=== PATIENT | male | born 1940 | race Caucasian/White ===

== ENCOUNTER 2017-02-09 11:21 | Day surgery (SDC) | payer OTHER ==
[~2017-02-09 11:21] MED LIST: AMBI5TAB PO; LEXA5SOL PO; LORC10TA PO; NORT10S PO
[2017-02-09] MEDS ORDERED: ASPI325T PO (12:04)
[2017-02-09] MEDS ORDERED: OMEG100010 PO (12:04)
[2017-02-09] MEDS ORDERED: NIZA150C2 PO (12:04)
[2017-02-09] MEDS ORDERED: ESCI20TA PO (12:04)
[2017-02-09] MEDS ORDERED: ROPI0.25 PO (12:04)
[2017-02-09] MEDS ORDERED: TEMA15CA PO (12:04)
[2017-02-09] MEDS ORDERED: PROP20TA3 PO (12:04)
[2017-02-09] MEDS ORDERED: REDCAP2 PO (12:04)
[2017-02-09] MEDS ORDERED: UBIQ100C PO (12:04)
[2017-02-09] MEDS ORDERED: CLON0.5T PO (12:04)
[2017-02-09] MEDS ORDERED: POVIDONE IODINE 5% (ANTISEPSIS KIT) 4 APPLICATIONS EACH NARE SCH (12:30)
[2017-02-09] MEDS ORDERED: MUPIROCIN 2% OINT 1 APPLIC/GM SYR NASAL SCH (12:30)
[2017-02-09] MEDS ORDERED: ceFAZolin 2 GM PREMIX 50 ML IV SCH (12:30)
[2017-02-09] MEDS ORDERED: CHLORHEXIDINE GLUCONATE 2 % 1 PACK (2 CLOTHS) TOPICAL SCH (12:30)
[2017-02-09] MEDS ORDERED: MIDAZOLAM HCL 5 MG/5 ML VIAL ONE (12:56)
--- NOTE | 2017-02-09 14:49 | MP ---
cc: QUETA DAVIS DATE OF SURGERY: 02/09/2017 INDICATION CVA, evaluation for atrial fibrillation. PROCEDURE PERFORMED Placement of Medtronic Reveal LINQ MRI compatible loop monitor. ACCESS SITE Left subclavicular area. EQUIPMENT USED Medtronic Reveal LINQ, model LMP11, MRI compatible loop monitor. Serial number [id number]. MEDICATIONS Versed IV, fentanyl IV. PROCEDURE Left upper chest was prepped and draped in the usual sterile manner. Local anesthesia was administered. Medtronic Reveal LINQ MRI compatible monitor was placed without difficulty. R-wave was 0.62 mV. COMPLICATIONS None. BLOOD LOSS Less than 10 ccs. DIAGNOSIS Successful placement of Medtronic Reveal LINQ MRI compatible loop monitor. DISPOSITION Mr. Carlson will be discharged home later today. We will initiate long-term monitoring of his device. I will see him back for followup in our office after discharge. MD DAVINA Orozco/TLL /1:57 PM /2:28 PM MTDTana
== END 2017-02-09 14:30 | disposition home or self-care (01) ==
LOC: HCAT 11:21 → HDIC 11:22 → HCAT 14:30
PROVIDERS: ATTEND Internal Medicine Interventional Cardiology
DX: I48.2 Chronic atrial fibrillation (principal)
CPT/HCPCS: 33282; C1764; J0690; J2250; J3010

== ENCOUNTER 2018-03-16 05:23 | Inpatient (IN) ==
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
[2018-03-16] MEDS ORDERED: ceFAZolin 2 GM Premix Inj 2 GM/50 ML PIGGYBACK IV.SIG ONE (05:53)
[2018-03-16] MEDS ORDERED: Sodium Chlor 0.9% Inj 500 ML IV.SIG SCH (06:00)
[2018-03-16] MEDS ORDERED: Chlorhexidine Gluconate 2% 1 Pack (2 Cloths) TOPICAL SCH (06:00)
[2018-03-16] MEDS ORDERED: Metoprolol Tartrate 25 MG Tablet PO SCH (06:00)
[2018-03-16] MEDS ORDERED: Tranexamic Acid Inj 1,000 MG in Sodium Chlor 0.9% Inj 100 ML IV.SIG SCH ×2 (06:00→08:57)
[2018-03-16] MEDS ORDERED: Dexmedetomidine Inj 200 MCG/2 ML Vial ONE (06:02)
[2018-03-16] MEDS ORDERED: Bupivacaine Liposomal PF 1.3% Inj 20 ML Vial ONE (06:40)
[2018-03-16] MEDS ORDERED: fentaNYL Citrate Inj 100 MCG/2 ML Ampul ONE (10:03)
[2018-03-16] MEDS ORDERED: Naloxone Inj 0.4 MG/ML Vial IV.PUSH PRN (10:12)
[2018-03-16] MEDS ORDERED: Post-op Orders (for Pharmacy) OTHER STA (10:12)
[2018-03-16] MEDS ORDERED: Aluminum/Magnesium/Simethacone Susp 30 ML UDC PO PRN (10:12)
[2018-03-16] MEDS ORDERED: Acetaminophen 325 MG Tablet PO PRN (10:12)
[2018-03-16] MEDS ORDERED: Bisacodyl 10 MG Supp RECTAL PRN (10:12)
[2018-03-16] MEDS ORDERED: Tranexamic Acid Inj 1,000 MG in Sodium Chlor 0.9% Inj 100 ML IV.SIG ONE (10:12)
[2018-03-16] MEDS ORDERED: Morphine Inj 30 MG/30 ML PCA.VIAL PCA ONE (10:26)
[2018-03-16] MEDS: Morphine Inj 30 MG/30 ML PCA.VIAL PCA PRN (10:43)
--- NOTE | 2018-03-16 11:02 | XR ---
EXAM DATE: 03/16/2018 10:48 AM EDT AGE/SEX: 77 years / Male INDICATIONS: Post op right shoulder surgery. CLINICAL DATA: This is the patient's initial encounter. Patient reports that signs and symptoms have been present for 1 day and indicates a pain score of 2/10. MEDICAL/SURGICAL HISTORY: . Unobtainable. . Unobtainable. COMPARISON: No prior exams available for comparison. FINDINGS: Total shoulder arthroplasty is present. The alignment is anatomical. CONCLUSION: Intact postoperative changes. Electronically signed by: Diego Braxton MD 03/16/2018 11:01 AM EDT
--- NOTE | 2018-03-16 11:06 | MP ---
cc: Mina Suresh MD DATE OF OPERATION: 03/16/2018 PREOPERATIVE DIAGNOSIS: Full-thickness rotator cuff tear of the right shoulder. POSTOPERATIVE DIAGNOSIS: Full-thickness rotator cuff tear of the right shoulder. PROCEDURE PERFORMED: Right reverse shoulder arthroplasty. SURGEON: Dr. Suresh. ANESTHESIA: General endotracheal. INDICATIONS: This is a 77-year-old white male with a 6-month history of right shoulder pain secondary to a fall from a ladder with blunt trauma to the right shoulder occurring and the onset of pain being noted. He was later evaluated by his primary care physician, who initially prescribed physical therapy that the patient attended for almost 3 months with very limited benefit being noted. He later completed an MRI scan which identified a massive full-thickness rotator cuff tear involving essentially all of the supraspinatus and infraspinatus and a large portion of the subscapularis tendon with mild atrophy of all 3 muscle bellies. Moderate to severe subacromial and subdeltoid bursitis as well as subacromial spurring with a moderate to severe hypertrophic degenerative change of the acromioclavicular joint and mild osteoarthritis of the glenohumeral joint and a chronic degenerative appearing SLAP lesion. The patient was later seen by the undersigned physician and at that time reported ongoing pain about his right shoulder with limited mobility for which he was having difficulty conforming to all activities of daily living. Findings and treatment options were reviewed. The pros and cons of continuing with conservative management versus operative intervention that would include an attempt at rotator cuff repair, superior capsular reconstruction or reverse shoulder arthroplasty were outlined. The pluses and minuses of each surgical procedure were reviewed with emphasis being made that the decision to proceed with surgery would be left entirely to the patient's discretion. The patient considered his options in this regard and subsequently expressed a desire to proceed with the reverse shoulder arthroplasty, feeling that this would provide him with the most favorable long-term benefit . In compliance with his wishes, he was scheduled for admission at this time in order that the above be accomplished. PROCEDURE IN DETAIL: Following the induction of satisfactory general anesthesia by endotracheal intubation as completed per the Department of Anesthesia, the patient was positioned upon the operating table in a modified beach chair configuration. A sheet roll was established along the vertebral border of the right scapula, and the right upper extremity and shoulder proper were isolated with a U-drape, thereafter being prepped with Betadine solution and draped into a sterile field in the routine manner. Prior to initiation of the actual procedure, the standard timeout protocol was completed. All parameters were appropriately addressed and confirmed by operating room personnel. A standard anterior approach to the shoulder was initiated through a sharp skin incision extending from the inferior border of the clavicle, slightly lateral to the palpable prominence of the coracoid process and extending distally to the axillary crease. Incision was developed through underlying subcutaneous tissue with hemostasis maintained by electrocautery. By deepening dissection, the deltopectoral interval was exposed and the cephalic vein identified distally and the interval developed in a distal to proximal orientation. Significant subdeltoid adhesions were encountered and released by digital manipulation and the shoulder was thereafter maintained in a slightly externally rotated orientation. Initial attention was directed anteriorly where the circumflex humeral vessels were identified, clamped, and coagulated. The biceps tendon was released about the bicipital groove and thereafter tenodesed to the pectoralis insertion with a limited release of the pectoralis having been completed. With the shoulder maintained in a slightly externally rotated orientation, the remnant of the subscapularis tendon was divided along the anatomic neck of the humerus. There was significant attenuation and disruption of the more superior structures of the rotator cuff tissue. As the tendon was released the humeral head was delivered into the wound. The medial portion of the subscapularis tendon was tagged with a #1-TiCron suture. With the humeral head exposed in a circumferential manner, a centering hole was placed superiorly, adjacent to the bicipital groove and an entry point into the humeral canal was facilitated. Sequential rasping was accomplished from 7 mm through 15 mm with the rasp in place. The outrigger guide was positioned and oriented in approximately 30 degrees of retroversion, facilitating excision of the humeral head. The guide was thereafter removed and broaching was accomplished through 14 mm with a 14 mm stem determined to be a satisfactory fit. The covering cap was positioned and attention was redirected to the glenoid. The residual stump of the biceps tendon was excised as was the labrum and the superior and anterior aspect of the glenohumeral ligament. The glenoid was thereafter exposed in a 360 degrees orientation. Hash up were placed at the 12 to 6 o'clock position and the 9 to 3 o'clock position, facilitating orientation of the central portion of the glenoid. A guide pin was positioned in approximately 10 degrees of inferior tilt over which the stepdown reamer was passed, creating a central peg hole as well as limited debridement in a circular manner about the glenoid. Thereafter a 25 mm glenosphere mini baseplate was firmly seated. Guide holes were placed and screws inserted with a central locking screw of 35 mm length, 25 mm locking screws superiorly and inferiorly and 15 mm screws anteriorly and posteriorly. With the ____ plates in a secure fixation, a 36 mm glenosphere with maximum inferior offset was attached to the baseplate in a secure manner. Attention returned to the proximal humerus with the [address]. A trial reduction followed utilizing a 36 mm x 44 mm humeral bearing insert. The shoulder was reduced and carried through a passive range of motion with stability being demonstrated throughout the arc of mobility. An open dislocation was completed and the humeral trial components were removed. The canal was thoroughly irrigated with antibiotic saline solution and thereafter a 14 mm mini humeral stem was firmly seated to which a 44 mm humeral tray with 44 mm x 36 mm bearing insert attached was connected to the mini stem; open reduction completed and repeat range of motion again noted stability as previously described. Final irrigation was accomplished with hemostasis being maintained. The limited portion of the subscapularis tendon was repaired with #1-TiCron suture. The deltopectoral interval was reapproximated with a running 0-Vicryl suture and the remaining portion of the wound was closed in layers in the routine manner, skin margins being reapproximated with a running subcuticular 3-0 Vicryl suture over which Steri-Strips were applied. Xeroform gauze and a bulky dry sterile dressing were placed. The extremity being supported in an arm sling, anesthesia was discontinued. The patient thus transferred to a hospital bed and returned to the recovery room in satisfactory condition, having tolerated his operative procedure well. Estimated blood loss was approximately 150 mL as determined per Anesthesia. All implants were of the [employer] chief cardiopulmonary technologist. MD YOLANDA Grimaldo/radha/belkys , 10:00 AM , 10:15 AM
[2018-03-16] MEDS ORDERED: Lidocaine PF 1% Inj 5 ML Syringe INFILTRATN ONE (12:00)
[2018-03-16] MEDS ORDERED: Neostigmine Inj 5 MG/5 ML Syringe IV.PUSH ONE (12:00)
[2018-03-16] MEDS ORDERED: Glycopyrrolate Inj 1 MG/5 ML Syringe IV.PUSH ONE (12:00)
--- NOTE | 2018-03-16 17:08 | P.CON ---
History of Present Illness Service: [facility]/HEPAs Consult date: 03/16/18 Requesting Physician: Mina Suresh Reason for Consult: Medical management Primary Care Provider: Danielle Johnson Family Provider: Danielle Johnson Chief Complaint: "I had surgery" History of Present Illness: 77-year-old male with past medical story significant for CVA in 2017, essential tremor, hyperlipidemia, anxiety, depression, panic attacks, restless leg syndrome, and sleep apnea who sustained a fall in September of this year with injury to his right shoulder. Patient underwent conservative treatment however MRI a later identified massive full-thickness rotator cuff tear. He was admitted to [facility] for right reverse shoulder arthroplasty by Dr. suresh. [facility] consulted to assist with ongoing medical management during his hospitalization. Patient is seen and examined sitting up in chair with at bedside. At the current moment he denies any fevers, chills, nausea, vomiting, diarrhea, cough, shortness of breath, chest pain, headache or dizziness. He reports that he is not having any pain at the current moment. Patient and is asking that I please verify his medications as he has a history of panic attacks as well as anxiety and depression, his home regimens have been working for him and he would like to have these continued while he is here. He denies any other acute complaints or concerns at the current moment. [facility] - History History Provided By: Patient - Medical History Medical History: Medical History (Last Reviewed 03/16/18 @ 13:55 by Alyx Chang) Anxiety Arthritis Depression Essential tremor GERD (gastroesophageal reflux disease) Normal colonoscopy Panic attacks Prostate disorder Restless leg syndrome Sleep apnea with use of continuous positive airway pressure (CPAP) Stroke Torn rotator cuff Uses hearing aid Wears glasses - Surgical History Surgical History: Surgical History (Last Reviewed 03/16/18 @ 13:55 by Alyx Chang) History of arthroscopy of left knee History of cataract extraction with lens replacement History of loop recorder History of vasectomy - Tobacco History Second Hand Smoke Exposure: No Smoking Status: Former smoker - Alcohol History How Often Do You Have a Drink Containing Alcohol: 2 to 4 times a month - Substance Use History Substance History: No History of Abuse - Travel History Recent Travel in the [place] Within the Last 8 Weeks: No Recent Travel Out of the Country Within the Last 8 Weeks: No Medications and Allergies Active Medications: Active Medications Acetaminophen (Tylenol) 650 mg PO Q6H PRN PRN Reason: FEVER > 102 F Hydrocodone Bitart/Acetaminophen ([place] 5/325) 1 tab PO Q4H PRN PRN Reason: PAIN LESS THAN 5 ON SCALE Hydrocodone Bitart/Acetaminophen ([place] 5/325) 2 tab PO Q6H PRN PRN Reason: PAIN SCALE 5 TO 10 Al Hydrox/Mg Hydrox/Simethicone (Mag-Al Plus Susp Liq) 30 ml PO Q6H PRN PRN Reason: INDIGESTION Al Hydroxide/Mg Hydroxide (Milk Of Magnesia Liq) 30 ml PO BID PRN PRN Reason: Mild Constipation Aspirin (Aspirin) 325 mg PO BID [facility] Bisacodyl (Dulcolax Supp) 10 mg RECTAL DAILY PRN PRN Reason: SEVERE CONSITIPATION Chlorhexidine Gluconate (Chlorhexidine 2% Cloth) 3 pack TOPICAL [facility] Stop: 03/19/18 05:51 Last Admin: 03/16/18 05:40 Dose: 3 pack Clonazepam (Klonopin) 0.5 mg PO DAILY [facility] Diphenhydramine HCl (Benadryl) 25 mg PO HS PRN PRN Reason: Rash Escitalopram Oxalate (Lexapro) 20 mg PO DAILY [facility] Lactated Ringer's (Lr 1000 Ml Inj) 1,000 mls @ 30 mls/hr IV.SIG .Q24H [facility] Stop: 03/19/18 05:51 Last Infusion: 03/16/18 15:45 Dose: Infused Sodium Chloride (Ns Inj) 500 mls @ 30 mls/hr IV.SIG .Q10H [facility] Stop: 03/19/18 05:51 Cefazolin Sodium 2,000 mg/ (Sodium Chloride) 100 mls @ 200 mls/hr IV.SIG [facility] Stop: 03/20/18 05:59 Cefazolin Sodium 1,000 mg/ (Sodium Chloride) 100 mls @ 200 mls/hr IV.SIG Q6H [facility] Stop: 03/17/18 01:29 Last Infusion: 03/16/18 15:05 Dose: Infused Morphine Sulfate (Morphine Inj) 30 mg in 30 mls @ 0 mls/hr PRICER UNSCH PRN PRN Reason: per PRICER parameters Stop: 03/17/18 10:11 Last Admin: 03/16/18 10:43 Dose: 0 mls/hr Lactated Ringer's (Lr 1000 Ml Inj) 1,000 mls @ 80 mls/hr IV.CONT .[id number] [facility] Last Admin: 03/16/18 10:38 Dose: 80 mls/hr Lactulose (Lactulose Liq) 30 ml PO DAILY PRN PRN Reason: SEVERE CONSITIPATION Metoprolol Tartrate (Lopressor) 25 mg PO [facility] Stop: 03/19/18 05:51 Miscellaneous Information ([facility] [place] [facility]) 0 each OTHER UNSCH PRN PRN Reason: SEE DOSE INSTRUCTIONS Naloxone HCl (Narcan Inj) 0.4 mg IV.PUSH UNSCH PRN PRN Reason: Resp rate < 10 Ondansetron HCl (Zofran Inj) 4 mg IV.PUSH Q6H PRN PRN Reason: NAUSEA OR VOMITING Patient Own Medication: Magnesium 250mg Tablet 0 each PO DAILY [facility] Povidone Iodine (Betadine 5% Antisepsis Kit) 1 applicatio EACH NARE [facility] Stop: 03/19/18 05:51 Last Admin: 03/16/18 06:11 Dose: 1 applicatio Povidone Iodine (Betadine 7.5% Scrub) 1 applicatio TOPICAL ONCE [facility] Stop: 03/20/18 05:59 Last Admin: 03/16/18 06:11 Dose: 1 applicatio Propranolol HCl (Inderal) 20 mg PO TID [facility] Last Admin: 03/16/18 15:45 Dose: Not Given Ranitidine HCl (Zantac) 150 mg PO BID PRN PRN Reason: GASTRIC REFLUX Ropinirole HCl (Requip) 0.5 mg PO TID PRN PRN Reason: RESTLESS LEG(S) Senna/Docusate Sodium (Sonia-Colace) 1 tab PO BID [facility] Sennosides (Senokot) 17.2 mg PO BID PRN PRN Reason: Moderate Constipation Sodium Chloride (Ns Flush) 2 ml IV.FLUSH BID [facility] Sodium Chloride (Ns Flush) 2 ml IV.FLUSH UNSCH PRN PRN Reason: FLUSH AFTER USING IV ACCESS Vitamin D (Vitamin D3) 1,000 unit PO DAILY [facility] Zolpidem Tartrate (Ambien) 5 mg PO HS PRN PRN Reason: INSOMNIA Allergies Allergy/AdvReac Type Severity Reaction Status Date / Time No Known Allergies Allergy Verified 03/16/18 06:01 Home Medications Medication Instructions Recorded Confirmed Type cholecalciferol (vitamin D3) 1 cap PO DAILY 03/15/18 03/16/18 History [Vitamin D3] clonazepam 0.5 mg PO DAILY 03/15/18 03/16/18 History coenzyme Q10 [Co Q-10] 200 mg PO DAILY 03/15/18 03/16/18 History escitalopram oxalate [Lexapro] 20 mg PO DAILY 03/15/18 03/16/18 History magnesium 250 mg PO DAILY 03/15/18 03/16/18 History nizatidine 150 mg PO DAILY PRN 03/15/18 03/16/18 History omega 8-mpm-wbt-fish oil [Fish Oil] 1 cap PO DAILY 03/15/18 03/16/18 History propranolol 20 mg PO TID 03/15/18 03/16/18 History red yeast rice 600 mg PO DAILY 03/15/18 03/16/18 History ropinirole 0.5 mg PO TID PRN 03/15/18 03/16/18 History temazepam 15 mg PO HS 03/15/18 03/16/18 History aspirin 81 mg PO DAILY 03/16/18 03/16/18 History diphenhydramine HCl [Benadryl] 25 mg PO HS PRN 03/16/18 03/16/18 History Physical Exam Vital signs: Vital Signs 03/16/18 06:14 03/16/18 06:40 03/16/18 09:57 Temperature 98.3 F 97.6 F Pulse Rate 54 L 55 L 61 Respiratory Rate 18 14 Blood Pressure 139/77 138/72 Pulse Oximetry 96 95 94 L 03/16/18 10:00 03/16/18 10:15 03/16/18 10:30 Temperature Pulse Rate 57 L 61 55 L Respiratory Rate 20 10 L 17 Blood Pressure 125/64 141/71 H 117/56 L Pulse Oximetry 94 L 97 94 L 03/16/18 10:45 03/16/18 11:00 03/16/18 12:00 Temperature Pulse Rate 53 L 53 L 55 L Respiratory Rate 22 7 L 11 L Blood Pressure 119/62 116/59 L 116/58 L Pulse Oximetry 94 L 94 L 95 03/16/18 13:00 03/16/18 13:45 03/16/18 15:40 Temperature 97.8 F 97.3 F L Pulse Rate 64 73 63 Respiratory Rate 18 16 18 Blood Pressure 138/67 138/67 111/59 L Pulse Oximetry 95 95 93 L Intake & Output 03/15/18 03/16/18 03/16/18 18:59 06:59 18:59 Intake Total 2810 / 2810 Output Total 650 / 650 Balance 2160 / 2160 Weight 95.4 kg 95.4 kg Intake: IV 1260 / 1260 LR 1000 mL Inj 1,000 ML @ 30 1000 / 1000 mls/hr IV.SIG .Q24H [facility] Rx#: [id number] Cyklokapron Inj 1,000 MG In NS 110 / 110 Inj 100 ML @ 200 mls/hr IV.SIG ONCE [facility] Rx#:[id number] Ancef 2 GM Premix Inj 2 gm In 50 / 50 50 ml @ 0 mls/hr IV.SIG .STK- MED ONE Rx#:[id number] Ancef Inj 1,000 MG In NS Inj 100 / 100 100 ML @ 200 mls/hr IV.SIG Q6H [facility] Rx#:[id number] Oral 250 / 250 Anesthesia Amount 1300 / 1300 Output: Estimated Blood Loss 150 / 150 Urine Amount (Catheter) 500 / 500 Straight 500 / 500 Other: Date of Last Bowel Movement 03/15/18 Weight On Admission 95.4 kg Narrative: GENERAL: Well-developed, well-nourished male sitting up in chair. SKIN: Warm and dry. HEAD: Atraumatic. Normocephalic. EYES: Pupils equal and round. No scleral icterus. No injection or drainage. ENT: No nasal bleeding or discharge. Mucous membranes pink and moist. NECK: Trachea midline. No JVD. CARDIOVASCULAR: Regular rate and rhythm. RESPIRATORY: No accessory muscle use. Clear to auscultation. Breath sounds equal bilaterally. GASTROINTESTINAL: Abdomen soft, non-tender, nondistended. Positive bowel sounds. MUSCULOSKELETAL: Extremities without clubbing, cyanosis. Right shoulder dressing dry and intact, movement on all fingers, sensation intact, capillary refill less than 3 seconds. NEUROLOGICAL: Awake and alert. No obvious cranial nerve deficits. Motor grossly within normal limits. Normal speech. PSYCHIATRIC: Appropriate mood and affect; insight and judgment normal. - Urinary Catheter Management Straight Cath placed during this visit: yes Reason for continuing: Not indwelling catheter Insertion date: 03/16/18 Insertion time: 13:00 Assessment and Plan - Plan 77-year-old male with past medical story significant for CVA in 2017, essential tremor, hyperlipidemia, anxiety, depression, panic attacks, restless leg syndrome, and sleep apnea who sustained a fall in September of this year with injury to his right shoulder. Patient underwent conservative treatment however MRI a later identified massive full-thickness rotator cuff tear. He was admitted to [place] today for right reverse shoulder arthroplasty by Dr. suresh. [facility] consulted to assist with ongoing medical management during his hospitalization. Right shoulder rotator cuff tear -s/p repair by Dr. suresh 03/16 -Currently on pain PRICER pump, transitioned to p.o. likely tomorrow -PT/OT Anxiety/depression Panic attacks -Continue escitalopram and clonazepam Restless leg syndrome Essential tremor -Continue propanolol and Requip History of CVA Hyperlipidemia -Continue ASA 81 mg daily - and patient reports that patient has treated his hyperlipidemia with homeopathic medications/dietary changes, no longer on statin medication Insomnia-continue temazepam DVT prophylaxis-per Ortho Thank you Dr. suresh for this consultation, will continue to follow along. Discussed Condition With: Discussed with patient, RN, at bedside.
[2018-03-16] MEDS ORDERED: Temazepam 15 MG Capsule PO PRN (18:00)
[2018-03-16] MEDS: Senna/Docusate Sodium 8.6/50 MG Tablet PO SCH (20:09)
[2018-03-16] MEDS: Aspirin 325 MG Tablet PO SCH (20:09)
[2018-03-16] MEDS ORDERED: Zolpidem Tartrate 5 MG Tablet PO PRN (21:00)
[2018-03-17] MEDS: Morphine Inj 30 MG/30 ML PCA.VIAL PCA PRN (06:31)
[2018-03-17] MEDS: Aspirin 325 MG Tablet PO SCH (08:29)
[2018-03-17] MEDS: Senna/Docusate Sodium 8.6/50 MG Tablet PO SCH (08:29)
[2018-03-17] MEDS ORDERED: MAGNESIUM 250 MG PO SCH (09:00)
[2018-03-17] MEDS ORDERED: Non-Formulary Drug (Omega 3-Dha-Epa-Fish Oil [Fish Oil] 1 CAP) PO SCH (09:00)
[2018-03-17] MEDS ORDERED: clonazePAM 0.5 MG Tablet PO SCH (09:00)
[2018-03-17] MEDS ORDERED: Non-Formulary Drug (Coenzyme Q10 [Co Q-10] 200 MG) PO SCH (09:00)
--- NOTE | 2018-03-17 09:32 | P.DCO ---
- Occupational Therapy Order: Evaluate and treat - Home Health Nursing Order: Wound care and dressing changes - Home Health Aide Order: To assist in: Bathing and personal care - Case Management Consult Yes - Certification I have seen patient Patricio Carlson on 03/17/18. My clinical findings support the need for the requested home health care services because: Limited ability to care for self, High risk of falls I certify that my clinical findings support that this patient is homebound because: Post-op weakness, Unsteady gait/balance
== END 2018-03-17 14:07 | disposition home health service (06) ==
LOC: HSDI 05:23 → N06 14:02
PROVIDERS: ADMIT Orthopaedic Surgery; ATTEND Orthopaedic Surgery

== ENCOUNTER 2018-03-22 10:31 | Inpatient (IN) ==
[2018-03-22 11:29] LABS: Baso % (Auto) 0.3 % (0.0-2.0); Eos # (Auto) 0.4 th/mm3 (0.0-0.4); Eos % (Auto) 3.4 % (0.0-4.0); Hematocrit 36.2 % (39.0-51.0); Hemoglobin 12.4 gm/dL (13.0-17.0); Lymph # (Auto) 1.1 th/mm3 (1.0-4.8); Lymph % (Auto) 9.2 % (9.0-44.0); Mean Corpuscular HGB Conc 34.1 % (32.0-36.0); Mean Corpuscular Hemoglobin 31.7 pg (27.0-34.0); Mean Corpuscular Volume 93.1 fL (80.0-100.0); Mean Platelet Volume 7.8 fL (7.0-11.0); Mono # (Auto) 1.6 th/mm3 (0.0-0.9); Mono % (Auto) 14.1 % (0.0-8.0); Neut # (Auto) 8.4 th/mm3 (1.8-7.7); Platelet Count 239 th/mm3 (150-450); Red Blood Count 3.89 mil/mm3 (4.50-5.90); Red Cell Distribution Width 13.5 % (11.6-17.2); White Blood Count 11.5 th/mm3 (4.0-11.0)
[2018-03-22] MEDS ORDERED: Sodium Chlor 0.9% Inj 250 ML IV.SIG SCH (12:00)
[2018-03-22 12:02] LABS: Albumin 2.7 g/dL (3.4-5.0); Anion Gap 8 meq/L (5-15); Aspartate Aminotransferase 51 U/L (15-37); Blood Urea Nitrogen 43 mg/dL (7-18); Calcium 7.7 mg/dL (8.5-10.1); Carbon Dioxide 26.5 meq/L (21.0-32.0); Chloride 105 meq/L (98-107); Glomerular Filtration Rate 17 mL/min (>89); Glucose,Random 92 mg/dL (74-106); Lipase 120 U/L (73-393); Potassium 4.6 meq/L (3.5-5.1); Sodium 139 meq/L (136-145)
[2018-03-22 12:03] LABS: Alanine Aminotransferase 60 U/L (12-78)
[2018-03-22 12:06] LABS: Alkaline Phosphatase 62 U/L (45-117); Total Protein 6.8 g/dL (6.4-8.2)
[2018-03-22 12:33] LABS: Bilirubin,Urine Negative (Negative); Clarity,Urine Clear (Clear); Color,Urine Yellow (Yellw/Straw); Glucose,Urine (UA) Negative (Negative); Leukocyte Esterase,Urine Negative (Negative); Mucus,Urine Few /lpf (Occasional); Nitrite,Urine Negative (Negative); Specific Gravity,Urine 1.008 (1.002-1.035); Squamous Epithelial Cell,Urine <1 /hpf (0-5)
--- NOTE | 2018-03-22 13:31 | CT ---
EXAM DATE: 03/22/2018 12:28 PM EDT AGE/SEX: 77 years / Male INDICATIONS: Abdominal pain. Constipation for three days. CLINICAL DATA: This is the patient's initial encounter. Patient reports that signs and symptoms have been present for 3 days and indicates a pain score of 8/10. MEDICAL/SURGICAL HISTORY: Gastroesophageal reflux disease. Prostate disorder. . Loop recorder. Vasectomy. RADIATION DOSE: 11.16 CTDI (mGy) ; Patient positioning COMPARISON: No prior exams available for comparison. TECHNIQUE: Multiple contiguous axial images were obtained through the abdomen. Images were obtained using multiple row detector helical technique. Using automated exposure control and adjustment of the mA and/or kV according to patient size, radiation dose was kept as low as reasonably achievable to o btain optimal diagnostic quality images. DICOM format image data is available electronically for rev iew and comparison. FINDINGS: Imaging through the lung bases demonstrates a small area of consolidation in the right lower lobe. Th ere is minimal basilar effusion on the right. An underlying pneumonia is not excluded. The examinatio n does demonstrate atherosclerotic plaquing in the coronary arteries. The heart appears normal in siz e. The appearance of the liver, spleen, pancreas and adrenal glands is within normal limits. There is mi ld prominence of the collecting system of both kidneys. The bladder is dilated. There is mild enlarge ment of the prostate. The exam would suggest some degree of bladder outlet obstruction. There is no free intraperitoneal air. No free fluid is seen within the abdomen. The visualized loops of small and large bowel are unremarkable. The abdominal aorta is normal in caliber. There is diffuse atherosclerotic plaquing within the abdomi nal aorta. The visualized bony structures demonstrate degenerative changes but are otherwise intact. CONCLUSION: 1. The bladder is distended. There is mild prominence of the collecting system within both kidneys. The prostate is mildly enlarged. The exam would suggest some degree of bladder outlet obstruction. 2. The colon is decompressed. There is only very minimal stool within the colon. 3. There is an area of consolidation very minimal effusion at the right lung base. Electronically signed by: Catalino Garrido MD 03/22/2018 1:30 PM EDT
[2018-03-22] MEDS ORDERED: clonazePAM 0.5 MG Tablet PO PRN (14:00)
[2018-03-22] MEDS ORDERED: Acetaminophen 325 MG Tablet PO PRN (14:01)
[2018-03-22] MEDS ORDERED: Famotidine 20 MG Tablet PO PRN (14:15)
--- NOTE | 2018-03-22 14:37 | ED ---
HPI General Chief Complaint: Abdominal Pain Stated Complaint: Abd pain Time Seen by Provider: 03/22/18 10:47 Source: patient and family Mode of arrival: ambulatory Limitations: no limitations History of Present Illness HPI narrative: Patient is a 77-year-old male, past medical history significant for anxiety with panic attacks, previous stroke, who presents with complaint of constipation. He recently had surgery on his right shoulder and was sent home with medications. He has been struggling with constipation since which is relieved temporarily with mag citrate. He has been taking 1 dose of MiraLAX daily without any change. He also complains of intermittent left lower quadrant abdominal pain that is spasming in nature and has been coming and going. No nausea nor vomiting. No fever nor chills. MD complaint: abdominal pain Onset (ago): unknown Pain Consistency: intermittent and now resolved Location: LLQ Severity: moderate Quality: cramping Radiation: none Migration to: no migration Relieving factors: nothing Exacerbating factors: nothing Associated symptoms: constipation Related Data Home Medications Medication Instructions Recorded Confirmed cholecalciferol (vitamin D3) 1 cap PO DAILY 03/15/18 03/22/18 [Vitamin D3] clonazepam 0.5 mg PO DAILY 03/15/18 03/22/18 coenzyme Q10 [Co Q-10] 200 mg PO DAILY 03/15/18 03/22/18 escitalopram oxalate [Lexapro] 20 mg PO DAILY 03/15/18 03/22/18 magnesium 250 mg PO DAILY 03/15/18 03/22/18 nizatidine 150 mg PO DAILY PRN 03/15/18 03/22/18 omega 8-qud-jln-fish oil [Fish Oil] 1 cap PO DAILY 03/15/18 03/22/18 propranolol 20 mg PO TID 03/15/18 03/22/18 red yeast rice 600 mg PO DAILY 03/15/18 03/22/18 ropinirole 0.5 mg PO TID PRN 03/15/18 03/22/18 temazepam 15 mg PO HS 03/15/18 03/22/18 diphenhydramine HCl [Benadryl] 25 mg PO HS PRN 03/16/18 03/22/18 Previous Rx's Medication Instructions Recorded acetaminophen 650 mg PO Q6H PRN tab 03/17/18 aspirin 325 mg PO BID tab 03/17/18 hydrocodone-acetaminophen 1 tab PO Q4H PRN #20 tab 03/17/18 metoprolol tartrate 25 mg PO MANIFEST/[employer] ORDERS tab 03/17/18 Allergies Allergy/AdvReac Type Severity Reaction Status Date / Time No Known Allergies Allergy Verified 03/16/18 06:01 Review of Systems ROS: all other systems reviewed are negative COUNT INCLUDES [facility] Medical History Medical History Anxiety (Acute) Depression (Acute) Insomnia (Acute) Sleep apnea (Acute) Anxiety (Acute) Arthritis (Acute) Depression (Acute) Essential tremor (Acute) GERD (gastroesophageal reflux disease) (Acute) Normal colonoscopy (Acute) Panic attacks (Acute) Prostate disorder (Acute) Restless leg syndrome (Acute) Sleep apnea with use of continuous positive airway pressure (CPAP) (Acute) Stroke (Acute) Torn rotator cuff (Acute) Uses hearing aid (Acute) Wears glasses (Acute) Surgical History Surgical History History of arthroscopy of left knee (Acute) History of cataract extraction with lens replacement (Acute) History of loop recorder (Acute) History of vasectomy (Acute) Social History Social History Substance History: No History of Abuse Second Hand Smoke Exposure: No Smoking Status: Never smoker How Often Do You Have a Drink Containing Alcohol: 2 to 4 times a month Immunization History Tetanus Immunization: <5 Years Hx Influenza Vaccine This Season: Yes Exam Narrative Exam Narrative: GENERAL: Well appearing male in NAD SKIN: Focused skin assessment warm/dry. HEAD: Atraumatic. Normocephalic. EYES: Pupils equal and round. No scleral icterus. No injection or drainage. ENT: No nasal bleeding or discharge. Mucous membranes pink and moist. NECK: Trachea midline. No JVD. CARDIOVASCULAR: Regular rate and rhythm. No murmur appreciated. RESPIRATORY: No accessory muscle use. Clear to auscultation. Breath sounds equal bilaterally. GASTROINTESTINAL: Abdomen soft, non-tender, nondistended. Hepatic and splenic margins not palpable. MUSCULOSKELETAL: No obvious deformities. No clubbing. No cyanosis. No edema. NEUROLOGICAL: Awake and alert. No obvious cranial nerve deficits. Motor grossly within normal limits. Normal speech. PSYCHIATRIC: Appropriate mood and affect; insight and judgment normal. Course Initial Documented Vital Signs Temperature 98.7 F 03/22/18 10:31 Pulse Rate 58 L 03/22/18 10:31 Respiratory Rate 18 03/22/18 10:31 Blood Pressure 128/66 03/22/18 10:31 Pulse Oximetry 90 L 03/22/18 10:31 Last Documented Vital Signs Temperature 98.7 F 03/22/18 10:31 Pulse Rate 58 L 03/22/18 10:35 Respiratory Rate 18 03/22/18 10:35 Blood Pressure 145/72 H 03/22/18 10:35 Pulse Oximetry 96 03/22/18 11:55 Medical Decision Making MDM Narrative Medical decision making narrative: Patient is a 77-year-old male who presents with complaint of intermittent abdominal pain with constipation that is temporarily relieved with mag citrate. Labs reveal a creatinine of 3.5 and patient and his say that he has had normal creatinines up to this point in time. We have no labs on record for him. CT did show bladder outlet obstruction causing hydronephrosis. A Silver catheter is being placed. I spoke with Dr. Gomez, hospitalist on-call, who agreed to the admission. Medical Screen Exam Complete: Yes Emergency Medical Condition: Yes Differential Diagnosis Differential Diagnosis: Differential diagnosis includes but is not limited to obstruction, impaction, electrolyte abnormality. Medical Records Medical records reviewed: Yes I reviewed the patient's medical records. Lab Data Lab results reviewed: Yes I reviewed the patient's lab results. Lab results narrative: Creatinine elevation. Result diagrams: 03/22/18 11:09 03/22/18 11:09 Lab Results 03/22/18 03/22/18 03/22/18 Range/Units 11:09 11:09 11:53 WBC 11.5 H (4.0-11.0) th/mm3 RBC 3.89 L (4.50-5.90) mil/mm3 Hgb 12.4 L (13.0-17.0) gm/dL Hct 36.2 L (39.0-51.0) % MCV 93.1 (80.0-100.0) fL MCH 31.7 (27.0-34.0) pg MCHC 34.1 (32.0-36.0) % RDW 13.5 (11.6-17.2) % Plt Count 239 (150-450) th/mm3 MPV 7.8 (7.0-11.0) fL Neut % (Auto) 73.0 H (16.0-70.0) % Lymph % (Auto) 9.2 (9.0-44.0) % [place] % (Auto) 14.1 H (0.0-8.0) % Eos % (Auto) 3.4 (0.0-4.0) % Baso % (Auto) 0.3 (0.0-2.0) % Neut # (Auto) 8.4 H (1.8-7.7) th/mm3 Lymph # (Auto) 1.1 (1.0-4.8) th/mm3 [place] # (Auto) 1.6 H (0.0-0.9) th/mm3 Eos # (Auto) 0.4 (0.0-0.4) th/mm3 Baso # (Auto) 0.0 (0.0-0.2) th/mm3 WBC Differential . Differential Comment Auto diff final Sodium 139 (136-145) meq/L Potassium 4.6 (3.5-5.1) meq/L Chloride 105 (98-107) meq/L Carbon Dioxide 26.5 (21.0-32.0) meq/L Anion Gap 8 (5-15) meq/L BUN 43 H (7-18) mg/dL Creatinine 3.54 H (0.60-1.30) mg/dL Estimated GFR 17 L (>89) mL/min Random Glucose 92 (74-106) mg/dL Calcium 7.7 L (8.5-10.1) mg/dL Total Bilirubin 0.8 (0.2-1.0) mg/dL AST 51 H (15-37) U/L ALT 60 (12-78) U/L Alkaline Phosphatase 62 (45-117) U/L Total Protein 6.8 (6.4-8.2) g/dL Albumin 2.7 L (3.4-5.0) g/dL Lipase 120 (73-393) U/L Urine Color Yellow (Yellw/Straw) Urine Clarity Clear (Clear) Urine pH 5.0 (5.0-8.5) Ur Specific [place] 1.008 (1.002-1.035) Urine Protein Negative (Neg-Trace) mg/dL Urine Glucose (UA) Negative (Negative) mg/dL Urine Ketones Negative (Negative) mg/dL Urine Occult Blood Small H (Negative) Urine Nitrate Negative (Negative) Urine Bilirubin Negative (Negative) Urine Urobilinogen Less than 2 (Less than 2) mg/dL Ur Leukocyte Esterase Negative (Negative) Urine WBC Less than 1 (0-5) /hpf Ur Squamous Epith Cells <1 (0-5) /hpf Urine Mucus Few H (Occasional) /lpf Micro UA Comment Culture not ind Ur Microscopic Review Not Reportable Urine Culture Comments Culture not ind Imaging Data Attestation: I personally reviewed and interpreted this imaging study as follows : Radiologist's impression: Abdomen/Pelvis CT 03/22/18 11:01 CONCLUSION: 1. The bladder is distended. There is mild prominence of the collecting system within both kidneys. The prostate is mildly enlarged. The exam would suggest some degree of bladder outlet obstruction. 2. The colon is decompressed. There is only very minimal stool within the colon. 3. There is an area of consolidation very minimal effusion at the right lung base. Discharge Plan Discharge Disposition Patient Disposition: 30 Still Patient Discharge Condition Condition: Stable Discharge Details Diagnosis: Bladder outlet obstruction Physicians Team ED Provider: Hailey Garibay Primary Care Provider: Danilele Johnson Attending Provider: Avila Gomez Discharge Interventions Interventions: Vital Signs Last Done: 03/22/18 10:35 Status ED Status: Admitted Patient
[2018-03-22] MEDS ORDERED: Magnesium Citrate Liq 300 ML Bottle PO ONE (14:47)
[2018-03-22] MEDS: Sod Chloride 0.9% Inj 1,000 ML IV.CONT SCH (14:48)
[2018-03-22] MEDS: Heparin - SQ 10,000 UNITS/ML Vial SQ SCH (14:48)
[2018-03-22] MEDS: Polyethylene Glycol 3350 17 GM Packet PO SCH (14:49)
--- NOTE | 2018-03-22 14:54 | P.HPIM ---
History of Present Illness Primary Care Physician: Danielle Johnson Chief Complaint: Abdominal discomfort History of Present Illness: The patient is a 77-year-old male with a past medical history significant for CVA with left-sided weakness, severe anxiety and BPH who is presenting to the hospital with abdominal discomfort. The patient states that he was recently hospitalized for right shoulder replacement. Following discharge home he has been taking pain medications and has been struggling with constipation. He took MiraLAX, suppository and magnesium citrate on 2 occasions. He has been having bowel movements about every other day. He has been passing gas. He endorses his stomach getting more swollen. He has been drinking plenty of fluids. He has been urinating, and has been using a diaper since being discharged from the hospital. He does follow up with urology as an outpatient and was told that he has a very large prostate. He says that in the past surgery was brought up but the patient was unsure about proceeding. The patient denies any history of kidney problems. He is requesting medication for anxiety. Discussed with his family at the bedside. Inpatient Certification: I certify that the inpatient services were ordered in accordance with Medicare regulations governing the order. This includes certification that hospital inpatient services are reasonable and necessary and in the case of services not specified as inpatient-only under 42 CFR 419.22(n), that they are appropriately provided as inpatient services in accordance to with the 2-midnight benchmark under 43 CFR 412.3(e) Estimated Total Length of Stay (Days): 2 Plans for Post Hospital Care: Home Review of Systems All other systems reviewed negative except as stated [facility] - History History Provided By: Patient - Medical History Medical History: Medical History (Last Reviewed 03/22/18 @ 14:34 by Hailey Garibay MD) Anxiety Depression Insomnia Sleep apnea Anxiety Arthritis Depression Essential tremor GERD (gastroesophageal reflux disease) Normal colonoscopy Panic attacks Prostate disorder Restless leg syndrome Sleep apnea with use of continuous positive airway pressure (CPAP) Stroke Torn rotator cuff Uses hearing aid Wears glasses - Surgical History Surgical History: Surgical History (Last Updated 03/22/18 @ 14:52 by Avila Gomez DO) History of right shoulder replacement History of arthroscopy of left knee History of cataract extraction with lens replacement History of loop recorder History of vasectomy - Family History Family History: Family History (Last Updated 03/22/18 @ 14:58 by Avila Gomez DO) Other Alcoholism Bipolar disorder CVA (cerebral vascular accident) Lung cancer Prostate cancer - Tobacco History Second Hand Smoke Exposure: No Tobacco Use In Past 30 Days: No Smoking Status: Former smoker (He quit when he was 28) - Alcohol History How Often Do You Have a Drink Containing Alcohol: 2 to 4 times a month - Substance Use History Substance History: No History of Abuse - Immunization History Tetanus Immunization: <5 Years Hx Influenza Vaccine This Season: Yes Medications and Allergies Active Medications: Active Medications Acetaminophen (Tylenol) 650 mg PO Q4H PRN PRN Reason: Temp > 100.4 Clonazepam (Klonopin) 0.5 mg PO Q12HR PRN PRN Reason: ANXIETY Escitalopram Oxalate (Lexapro) 20 mg PO DAILY [facility] Famotidine (Pepcid) 10 mg PO BID PRN PRN Reason: GASTRIC REFLUX Heparin Sodium (Porcine) (Heparin Inj) 5,000 units SQ Q8H [facility] Sodium Chloride (Ns Inj) 250 mls @ 0 mls/hr IV.SIG BOLUS [facility] Sodium Chloride (Ns Inj) 1,000 mls @ 100 mls/hr IV.CONT .Q10H [facility] Polyethylene Glycol (Miralax) 17 gm PO DAILY [facility] Propranolol HCl (Inderal) 20 mg PO TID [facility] Ropinirole HCl (Requip) 0.5 mg PO TID PRN PRN Reason: Restless Leg(S) Senna/Docusate Sodium (Sonia-Colace) 1 tab PO BID [facility] Sodium Chloride (Ns Flush) 2 ml IV.FLUSH PRN PRN PRN Reason: FLUSH AFTER USING IV ACCESS Tamsulosin HCl (Flomax) 0.4 mg PO DAILY [facility] Allergies Allergy/AdvReac Type Severity Reaction Status Date / Time No Known Allergies Allergy Verified 03/16/18 06:01 Home Medications Medication Instructions Recorded Confirmed Type cholecalciferol (vitamin D3) 1 cap PO DAILY 03/15/18 03/22/18 History [Vitamin D3] clonazepam 0.5 mg PO DAILY 03/15/18 03/22/18 History coenzyme Q10 [Co Q-10] 200 mg PO DAILY 03/15/18 03/22/18 History escitalopram oxalate [Lexapro] 20 mg PO DAILY 03/15/18 03/22/18 History magnesium 250 mg PO DAILY 03/15/18 03/22/18 History nizatidine 150 mg PO DAILY PRN 03/15/18 03/22/18 History omega 1-tjf-dhf-fish oil [Fish Oil] 1 cap PO DAILY 03/15/18 03/22/18 History propranolol 20 mg PO TID 03/15/18 03/22/18 History red yeast rice 600 mg PO DAILY 03/15/18 03/22/18 History ropinirole 0.5 mg PO TID PRN 03/15/18 03/22/18 History temazepam 15 mg PO HS 03/15/18 03/22/18 History diphenhydramine HCl [Benadryl] 25 mg PO HS PRN 03/16/18 03/22/18 History Exam Vital signs: Vital Signs 03/22/18 10:31 03/22/18 10:35 03/22/18 11:55 Temperature 98.7 F Pulse Rate 58 L 58 L Respiratory Rate 18 18 Blood Pressure 128/66 145/72 H Pulse Oximetry 90 L 96 96 Intake & Output 03/21/18 03/22/18 03/22/18 18:59 06:59 18:59 Weight 95.254 kg Narrative: GENERAL: Well appearing male in NAD. SKIN: Focused skin assessment warm/dry. HEAD: Atraumatic. Normocephalic. EYES: Pupils equal and round. No scleral icterus. No injection or drainage. ENT: No nasal bleeding or discharge. Mucous membranes pink and moist. NECK: Trachea midline. No JVD. CARDIOVASCULAR: Regular rate and rhythm. No murmur appreciated. RESPIRATORY: No accessory muscle use. Mild crackles at the right base. GASTROINTESTINAL: Abdomen soft, mildly tender, mildly distended. MUSCULOSKELETAL: No obvious deformities. No clubbing. No cyanosis. 1+ edema. NEUROLOGICAL: Awake and alert. No obvious cranial nerve deficits. Motor grossly within normal limits. Normal speech. PSYCHIATRIC: Anxious. Results - Labs CBC & Chem 7: 03/22/18 11:09 03/22/18 11:09 Labs: Short CBC 03/22/18 Range/Units 11:09 WBC 11.5 H (4.0-11.0) th/mm3 Hgb 12.4 L (13.0-17.0) gm/dL Hct 36.2 L (39.0-51.0) % Plt Count 239 (150-450) th/mm3 BMP 03/22/18 11:09 Sodium 139 Potassium 4.6 Chloride 105 Carbon Dioxide 26.5 BUN 43 H Creatinine 3.54 H Calcium 7.7 L Liver Function 03/22/18 Range/Units 11:09 Total Bilirubin 0.8 (0.2-1.0) mg/dL AST 51 H (15-37) U/L ALT 60 (12-78) U/L Alkaline Phosphatase 62 (45-117) U/L Albumin 2.7 L (3.4-5.0) g/dL Urine 03/22/18 Range/Units 11:53 Urine Color Yellow (Yellw/Straw) Urine Clarity Clear (Clear) Urine pH 5.0 (5.0-8.5) Ur Specific [place] 1.008 (1.002-1.035) Urine Protein Negative (Neg-Trace) mg/dL Urine Glucose (UA) Negative (Negative) mg/dL - Imaging Impressions Abdomen/Pelvis CT 03/22/18 11:01 CONCLUSION: 1. The bladder is distended. There is mild prominence of the collecting system within both kidneys. The prostate is mildly enlarged. The exam would suggest some degree of bladder outlet obstruction. 2. The colon is decompressed. There is only very minimal stool within the colon. 3. There is an area of consolidation very minimal effusion at the right lung base. Caprini VTE Risk Assessment Caprini VTE Risk Assessment: Moderate/High Risk (score >= 2) Caprini Risk Assessment Model: Point Value = 1 Point Value = 2 Point Value = 3 Point Value = 5 Age 41-60 Minor surgery BMI > 25 kg/m2 Swollen legs Varicose veins or History of unexplained or recurrent spontaneous Oral contraceptives or hormone replacement Sepsis (< 1 month) Serious lung disease, including pneumonia (< 1 month) Abnormal pulmonary function Acute myocardial infarction Congestive heart failure (< 1 month) History of inflammatory bowel disease Medical patient at bed rest Age 61-74 Arthroscopic surgery Major open surgery (> 45 min) Laparoscopic surgery (> 45 min) Malignancy Confined to bed (> 72 hours) Immobilizing plaster cast Central venous access Age >= 75 History of VTE Family history of VTE Factor V Leiden Prothrombin [id number] Lupus anticoagulant Anticardiolipin antibodies Elevated serum homocysteine Heparin-induced thrombocytopenia Other congenital or acquired thrombophilia Stroke (< 1 month) Elective arthroplasty Hip, pelvis, or leg fracture Acute spinal cord injury (< 1 month) Prophylaxis Regimen: Total Risk Factor Score Risk Level Prophylaxis Regimen 0-1 Low Early ambulation 2 Moderate Order ONE of the following: *Sequential Compression Device (SCD) *Heparin 5000 units SQ BID 3-4 Higher Order ONE of the following medications: *Heparin 5000 units SQ TID *Enoxaparin/Lovenox 40 mg SQ daily (WT < 150 kg, CrCl > 30 mL/min) *Enoxaparin/Lovenox 30 mg SQ daily (WT < 150 kg, CrCl > 10-29 mL/min) *Enoxaparin/Lovenox 30 mg SQ BID (WT < 150 kg, CrCl > 30 mL/min) AND/OR *Sequential Compression Device (SCD) 5 or more Highest Order ONE of the following medications: *Heparin 5000 units SQ TID (Preferred with Epidurals) *Enoxaparin/Lovenox 40 mg SQ daily (WT < 150 kg, CrCl > 30 mL/min) *Enoxaparin/Lovenox 30 mg SQ daily (WT < 150 kg, CrCl > 10-29 mL/min) *Enoxaparin/Lovenox 30 mg SQ BID (WT < 150 kg, CrCl > 30 mL/min) AND *Sequential Compression Device (SCD) Assessment and Plan - Plan Acute renal failure S/t bladder outlet obstruction. CT shows: The bladder is distended; There is mild prominence of the collecting system within both kidneys; The prostate is mildly enlarged; The exam would suggest some degree of bladder outlet obstruction. -start Flomax. -Silver to be placed. -consult urology. -follow Is and Os. -follow BMP and avoid nephrotoxins. Abdominal discomfort S/t above as well as constipation. -treatment as above. -bowel regimen. -pain control and antiemetics as needed. -PPI. Right shoulder replacement The pt recently had right shoulder surgery. He has not been taking ASA as recommended by ortho s/t abdominal discomfort. -Heparin for prophylaxis. -PT eval. Leukocytosis Likely a stress reaction. -follow CBC. Anxiety Acute on chronic. -clonazepam as needed. PPx: Heparin Code Status: Full
--- NOTE | 2018-03-22 15:17 | P.CONURO ---
History of Present Illness Service: Urology Consult date: 03/22/18 Requesting Physician: Avila Gomez Reason for Consult: BPH, LUNA, Retention Primary Care Provider: Danielle Johnson Family Provider: Danielle Johnson Chief Complaint: Abdominal discomfort History of Present Illness: The patient is a 77-year-old male with a past medical history significant for CVA with left-sided weakness, severe anxiety and BPH who is presenting to the hospital with abdominal discomfort. The patient states that he was recently hospitalized for right shoulder replacement. Following discharge home he has been taking pain medications and has been struggling with constipation. He took MiraLAX, suppository and magnesium citrate on 2 occasions. He has been having bowel movements about every other day. He has been passing gas. He endorses his stomach getting more swollen. He has been drinking plenty of fluids. He has been urinating, and has been using a diaper since being discharged from the hospital. He is a pt of Dr Gross, last f/u was more than 2y/a and he was told that he has a very large prostate but refused surgery at that time. He is not taking any meds. He developed constipation and retention post recent Rotator cuff sx on Thursday last week He has no f/c/n/v, no hematuria. Cr is 3.5. + mild leukocytosis. Urine is nitrites negative. CT scan showed BPH/LUNA and distended bladder with mild hydro c/w retention. Shelton was placed, draining urine well. Review of Systems All other systems reviewed negative except as stated in HPI [facility] - History History Provided By: Patient - Medical History Medical History: Medical History (Last Reviewed 03/22/18 @ 14:34 by Hailey Garibay MD) Anxiety Depression Insomnia Sleep apnea Anxiety Arthritis Depression Essential tremor GERD (gastroesophageal reflux disease) Normal colonoscopy Panic attacks Prostate disorder Restless leg syndrome Sleep apnea with use of continuous positive airway pressure (CPAP) Stroke Torn rotator cuff Uses hearing aid Wears glasses - Surgical History Surgical History: Surgical History (Last Updated 03/22/18 @ 14:52 by Avila Gomez DO) History of right shoulder replacement History of arthroscopy of left knee History of cataract extraction with lens replacement History of loop recorder History of vasectomy - Family History Family History: Family History (Last Updated 03/22/18 @ 14:58 by Avila Gomez DO) Other Alcoholism Bipolar disorder CVA (cerebral vascular accident) Lung cancer Prostate cancer - Tobacco History Second Hand Smoke Exposure: No Tobacco Use In Past 30 Days: No Smoking Status: Former smoker (He quit when he was 28) - Alcohol History How Often Do You Have a Drink Containing Alcohol: 2 to 4 times a month - Substance Use History Substance History: No History of Abuse - Immunization History Tetanus Immunization: <5 Years Hx Influenza Vaccine This Season: Yes Medications and Allergies Active Medications: Active Medications Acetaminophen (Tylenol) 650 mg PO Q4H PRN PRN Reason: Temp > 100.4 Clonazepam (Klonopin) 0.5 mg PO Q12HR PRN PRN Reason: ANXIETY Escitalopram Oxalate (Lexapro) 20 mg PO DAILY [facility] Famotidine (Pepcid) 10 mg PO BID PRN PRN Reason: GASTRIC REFLUX Heparin Sodium (Porcine) (Heparin Inj) 5,000 units SQ Q8H [facility] Last Admin: 03/22/18 14:48 Dose: 5,000 units Sodium Chloride (Ns Inj) 250 mls @ 0 mls/hr IV.SIG BOLUS [facility] Sodium Chloride (Ns Inj) 1,000 mls @ 100 mls/hr IV.CONT .Q10H [facility] Last Admin: 03/22/18 14:48 Dose: 100 mls/hr Polyethylene Glycol (Miralax) 17 gm PO DAILY [facility] Last Admin: 03/22/18 14:49 Dose: 17 gm Propranolol HCl (Inderal) 20 mg PO TID [facility] Ropinirole HCl (Requip) 0.5 mg PO TID PRN PRN Reason: Restless Leg(S) Senna/Docusate Sodium (Sonia-Colace) 1 tab PO BID [facility] Sodium Chloride (Ns Flush) 2 ml IV.FLUSH PRN PRN PRN Reason: FLUSH AFTER USING IV ACCESS Tamsulosin HCl (Flomax) 0.4 mg PO DAILY [facility] Last Admin: 03/22/18 14:48 Dose: 0.4 mg Allergies Allergy/AdvReac Type Severity Reaction Status Date / Time No Known Allergies Allergy Verified 03/16/18 06:01 Home Medications Medication Instructions Recorded Confirmed Type cholecalciferol (vitamin D3) 1 cap PO DAILY 03/15/18 03/22/18 History [Vitamin D3] clonazepam 0.5 mg PO DAILY 03/15/18 03/22/18 History coenzyme Q10 [Co Q-10] 200 mg PO DAILY 03/15/18 03/22/18 History escitalopram oxalate [Lexapro] 20 mg PO DAILY 03/15/18 03/22/18 History magnesium 250 mg PO DAILY 03/15/18 03/22/18 History nizatidine 150 mg PO DAILY PRN 03/15/18 03/22/18 History omega 2-hgp-qke-fish oil [Fish Oil] 1 cap PO DAILY 03/15/18 03/22/18 History propranolol 20 mg PO TID 03/15/18 03/22/18 History red yeast rice 600 mg PO DAILY 03/15/18 03/22/18 History ropinirole 0.5 mg PO TID PRN 03/15/18 03/22/18 History temazepam 15 mg PO HS 03/15/18 03/22/18 History diphenhydramine HCl [Benadryl] 25 mg PO HS PRN 03/16/18 03/22/18 History Physical Exam Vital Signs - 24 hr 03/22/18 10:31 03/22/18 10:35 03/22/18 11:55 Temperature 98.7 F Pulse Rate 58 L 58 L Respiratory Rate 18 18 Blood Pressure 128/66 145/72 H Pulse Oximetry 90 L 96 96 03/22/18 14:52 Temperature Pulse Rate 62 Respiratory Rate 16 Blood Pressure 151/74 H Pulse Oximetry 95 Physical Exam: NAD RRR Lungs clear Abd soft NT Shelton is in place Laboratory Results - last 24 hr 03/22/18 03/22/18 03/22/18 11:09 11:09 11:53 WBC 11.5 H RBC 3.89 L Hgb 12.4 L Hct 36.2 L MCV 93.1 MCH 31.7 MCHC 34.1 RDW 13.5 Plt Count 239 MPV 7.8 Neut % (Auto) 73.0 H Lymph % (Auto) 9.2 Powell % (Auto) 14.1 H Eos % (Auto) 3.4 Baso % (Auto) 0.3 Neut # (Auto) 8.4 H Lymph # (Auto) 1.1 Powell # (Auto) 1.6 H Eos # (Auto) 0.4 Baso # (Auto) 0.0 WBC Differential . Differential Comment Auto diff final Sodium 139 Potassium 4.6 Chloride 105 Carbon Dioxide 26.5 Anion Gap 8 BUN 43 H Creatinine 3.54 H Estimated GFR 17 L Random Glucose 92 Calcium 7.7 L Total Bilirubin 0.8 AST 51 H ALT 60 Alkaline Phosphatase 62 Total Protein 6.8 Albumin 2.7 L Lipase 120 Urine Color Yellow Urine Clarity Clear Urine pH 5.0 Ur Specific [place] 1.008 Urine Protein Negative Urine Glucose (UA) Negative Urine Ketones Negative Urine Occult Blood Small H Urine Nitrate Negative Urine Bilirubin Negative Urine Urobilinogen Less than 2 Ur Leukocyte Esterase Negative Urine WBC Less than 1 Ur Squamous Epith Cells <1 Urine Mucus Few H Micro UA Comment Culture not ind Ur Microscopic Review Not Reportable Urine Culture Comments Culture not ind Result Diagrams: 03/22/18 11:09 03/22/18 11:09 Imaging: ITS Impressions Abdomen/Pelvis CT 03/22/18 11:01 CONCLUSION: 1. The bladder is distended. There is mild prominence of the collecting system within both kidneys. The prostate is mildly enlarged. The exam would suggest some degree of bladder outlet obstruction. 2. The colon is decompressed. There is only very minimal stool within the colon. 3. There is an area of consolidation very minimal effusion at the right lung base. Assessment and Plan - Plan 77y.o M with h/o constipation and Urinary retention due to BPH/LUNA - Continue care as per primary team - No acute intervention needed - Keep shelton catheter in. Take flomax daily, add proscar 5mg a day - Manage constipation well - When stablecan be d/c home with shelton and flomax and proscar scripts - Pt to f/u with Urology as outpt for voiding trial and further BPH/LUNA management Discussed Condition With: Dr Mayank BORREGO attending
--- NOTE | 2018-03-22 15:31 | XR ---
EXAM DATE: 03/22/2018 3:28 PM EDT AGE/SEX: 77 years / Male INDICATIONS: Short of breath, decreased breath sounds in right lower lung per home health nurse CLINICAL DATA: This is the patient's initial encounter. Patient reports that signs and symptoms have been present for 1 day and indicates a pain score of Nonresponsive. MEDICAL/SURGICAL HISTORY: None. . right shoulder replaced last week COMPARISON: [facility], XR CHEST PA AND LAT, 02/23/2018. . FINDINGS: There is elevation of the right hemidiaphragm with basilar atelectasis on the right. The heart appear s mildly enlarged. The left lung is clear. The osseous structures demonstrate an old healed left clavicular fracture and previous right shoulder arthroplasty. These changes are similar to previous dated 02/23/2018. CONCLUSION: Elevation of the right hemidiaphragm with atelectatic changes at the right lung base similar to previ ous exam. Electronically signed by: Catalino Garrido MD 03/22/2018 3:30 PM EDT
[2018-03-22] MEDS ORDERED: Aspirin 325 MG Tablet PO SCH (21:00)
[2018-03-22] MEDS ORDERED: Temazepam 15 MG Capsule PO SCH (21:00)
[2018-03-22] MEDS: Senna/Docusate Sodium 8.6/50 MG Tablet PO SCH (21:09)
[2018-03-23] MEDS: Sod Chloride 0.9% Inj 1,000 ML IV.CONT SCH ×2 (00:23→09:52)
[2018-03-23] MEDS: Heparin - SQ 10,000 UNITS/ML Vial SQ SCH ×2 (00:23→06:26)
[2018-03-23 08:17] LABS: Baso # (Auto) 0.1 th/mm3 (0.0-0.2); Baso % (Auto) 0.6 % (0.0-2.0); Eos # (Auto) 0.4 th/mm3 (0.0-0.4); Eos % (Auto) 4.3 % (0.0-4.0); Hematocrit 35.6 % (39.0-51.0); Hemoglobin 12.3 gm/dL (13.0-17.0); Lymph # (Auto) 1.1 th/mm3 (1.0-4.8); Lymph % (Auto) 13.8 % (9.0-44.0); Mean Corpuscular HGB Conc 34.4 % (32.0-36.0); Mean Corpuscular Hemoglobin 32.1 pg (27.0-34.0); Mean Corpuscular Volume 93.3 fL (80.0-100.0); Mean Platelet Volume 7.6 fL (7.0-11.0); Mono % (Auto) 11.9 % (0.0-8.0); Neut # (Auto) 5.7 th/mm3 (1.8-7.7); Neut % (Auto) 69.4 % (16.0-70.0); Platelet Count 238 th/mm3 (150-450); Red Blood Count 3.82 mil/mm3 (4.50-5.90); Red Cell Distribution Width 13.5 % (11.6-17.2); White Blood Count 8.2 th/mm3 (4.0-11.0)
[2018-03-23 08:42] LABS: Albumin 2.4 g/dL (3.4-5.0); Anion Gap 9 meq/L (5-15); Blood Urea Nitrogen 22 mg/dL (7-18); Calcium 7.7 mg/dL (8.5-10.1); Carbon Dioxide 28.3 meq/L (21.0-32.0); Chloride 108 meq/L (98-107); Glomerular Filtration Rate 44 mL/min (>89); Glucose,Random 91 mg/dL (74-106); Potassium 4.2 meq/L (3.5-5.1); Sodium 145 meq/L (136-145)
[2018-03-23 08:44] LABS: Alanine Aminotransferase 59 U/L (12-78); Aspartate Aminotransferase 53 U/L (15-37)
[2018-03-23 08:45] LABS: Alkaline Phosphatase 59 U/L (45-117); Total Protein 6.5 g/dL (6.4-8.2)
[2018-03-23] MEDS: Polyethylene Glycol 3350 17 GM Packet PO SCH (08:49)
[2018-03-23] MEDS: Senna/Docusate Sodium 8.6/50 MG Tablet PO SCH (08:50)
--- NOTE | 2018-03-23 10:58 | P.DCO ---
- Home Health Nursing Order: Medical education, Signs/symptoms of disease process, Medication education-adverse effect, Nursing assessment with vital signs, Silver catheter maintenance - Certification I have seen patient Patricio Carlson on 03/23/18. My clinical findings support the need for the requested home health care services because: Limited mobility due to disease progression, Limited ability to care for self I certify that my clinical findings support that this patient is homebound because: Need for psychosocial assistance
[2018-03-23] MEDS ORDERED: Finasteride 5 MG Tablet PO SCH (11:00)
--- NOTE | 2018-03-23 11:03 | P.DCO ---
- Physical Therapy Order: Evaluate and treat, Improve ambulation, Strength and gait training - Home Health Nursing Order: Medical education, Signs/symptoms of disease process, Nursing assessment with vital signs, Silver catheter maintenance - Certification I have seen patient Patricio Carlson on 03/23/18. My clinical findings support the need for the requested home health care services because: Limited mobility due to disease progression, Deconditioned with increased weakness I certify that my clinical findings support that this patient is homebound because: Post-op weakness
--- NOTE | 2018-03-23 11:03 | P.PNIM ---
Subjective Interval history: The patient was resting comfortably in bed. He wanted to go home. He mentioned that the urine in the Silver was bloody. He just had a bowel movement. He feels a lot better in regards to abdominal discomfort. Discussed with family at the bedside. Discussed with nursing and case management. Physical Exam Vital signs: Vital Signs 03/22/18 11:55 03/22/18 14:52 03/22/18 19:36 Temperature Pulse Rate 62 78 Respiratory Rate 16 16 Blood Pressure 151/74 H 150/67 H Pulse Oximetry 96 95 98 03/22/18 20:00 03/22/18 20:22 03/23/18 00:00 Temperature 97.9 F 97.4 F L Pulse Rate 71 67 69 Respiratory Rate 20 18 Blood Pressure 118/61 122/65 Pulse Oximetry 90 L 92 L 03/23/18 04:00 03/23/18 08:00 Temperature 97.7 F Pulse Rate 70 71 Respiratory Rate 18 Blood Pressure 145/77 H Pulse Oximetry 90 L Intake & Output 03/22/18 03/23/18 03/23/18 18:59 06:59 18:59 Intake Total 1000 / 1000 1000 / 1000 Output Total 3100 / 3100 1000 / 1000 Balance -3100 / -3100 0 / 0 1000 / 1000 Weight 95.254 kg 177 kg Intake: IV 1000 / 1000 1000 / 1000 NS Inj 1,000 ML @ 100 mls/hr IV 1000 / 1000 1000 / 1000 .CONT .Q10H [facility] Rx#:[id number] Output: Urine Amount (Catheter) 3100 / 3100 1000 / 1000 Indwelling Urethral Catheter 3100 / 3100 1000 / 1000 Other: Date of Last Bowel Movement 03/22/18 03/23/18 Narrative: GENERAL: Well appearing male in NAD. SKIN: Focused skin assessment warm/dry. HEAD: Atraumatic. Normocephalic. EYES: Pupils equal and round. No scleral icterus. No injection or drainage. ENT: No nasal bleeding or discharge. Mucous membranes pink and moist. NECK: Trachea midline. No JVD. CARDIOVASCULAR: Regular rate and rhythm. No murmur appreciated. RESPIRATORY: No accessory muscle use. Mild crackles at the right base. GASTROINTESTINAL: Abdomen soft, nontender, mildly distended. MUSCULOSKELETAL: No obvious deformities. No clubbing. No cyanosis. 1+ edema. NEUROLOGICAL: Awake and alert. No obvious cranial nerve deficits. Motor grossly within normal limits. Normal speech. PSYCHIATRIC: Mood and affect appropriate. - Urinary Catheter Management Indwelling Urethral Catheter Cath placed during this visit: yes Reason for continuing: Acute urinary retention Insertion date: 03/22/18 Results - Labs CBC & Chem 7: 03/23/18 07:50 03/23/18 07:50 Laboratory Results - last 24 hr 03/22/18 03/22/18 03/22/18 11:09 11:09 11:53 WBC 11.5 H RBC 3.89 L Hgb 12.4 L Hct 36.2 L MCV 93.1 MCH 31.7 MCHC 34.1 RDW 13.5 Plt Count 239 MPV 7.8 Neut % (Auto) 73.0 H Lymph % (Auto) 9.2 [place] % (Auto) 14.1 H Eos % (Auto) 3.4 Baso % (Auto) 0.3 Neut # (Auto) 8.4 H Lymph # (Auto) 1.1 [place] # (Auto) 1.6 H Eos # (Auto) 0.4 Baso # (Auto) 0.0 WBC Differential . Differential Comment Auto diff final Sodium 139 Potassium 4.6 Chloride 105 Carbon Dioxide 26.5 Anion Gap 8 BUN 43 H Creatinine 3.54 H Estimated GFR 17 L Random Glucose 92 Calcium 7.7 L Total Bilirubin 0.8 AST 51 H ALT 60 Alkaline Phosphatase 62 Total Protein 6.8 Albumin 2.7 L Lipase 120 Urine Color Yellow Urine Clarity Clear Urine pH 5.0 Ur Specific [place] 1.008 Urine Protein Negative Urine Glucose (UA) Negative Urine Ketones Negative Urine Occult Blood Small H Urine Nitrate Negative Urine Bilirubin Negative Urine Urobilinogen Less than 2 Ur Leukocyte Esterase Negative Urine WBC Less than 1 Ur Squamous Epith Cells <1 Urine Mucus Few H Micro UA Comment Culture not ind Ur Microscopic Review Not Reportable Urine Culture Comments Culture not ind 03/23/18 03/23/18 07:50 07:50 WBC 8.2 RBC 3.82 L Hgb 12.3 L Hct 35.6 L MCV 93.3 MCH 32.1 MCHC 34.4 RDW 13.5 Plt Count 238 MPV 7.6 Neut % (Auto) 69.4 Lymph % (Auto) 13.8 [place] % (Auto) 11.9 H Eos % (Auto) 4.3 H Baso % (Auto) 0.6 Neut # (Auto) 5.7 Lymph # (Auto) 1.1 [place] # (Auto) 1.0 H Eos # (Auto) 0.4 Baso # (Auto) 0.1 WBC Differential . Differential Comment Auto diff final Sodium 145 Potassium 4.2 Chloride 108 H Carbon Dioxide 28.3 Anion Gap 9 BUN 22 H Creatinine 1.56 H Estimated GFR 44 L Random Glucose 91 Calcium 7.7 L Total Bilirubin 0.8 AST 53 H ALT 59 Alkaline Phosphatase 59 Total Protein 6.5 Albumin 2.4 L Lipase Urine Color Urine Clarity Urine pH Ur Specific [place] Urine Protein Urine Glucose (UA) Urine Ketones Urine Occult Blood Urine Nitrate Urine Bilirubin Urine Urobilinogen Ur Leukocyte Esterase Urine WBC Ur Squamous Epith Cells Urine Mucus Micro UA Comment Ur Microscopic Review Urine Culture Comments - Imaging Impressions Abdomen/Pelvis CT 03/22/18 11:01 CONCLUSION: 1. The bladder is distended. There is mild prominence of the collecting system within both kidneys. The prostate is mildly enlarged. The exam would suggest some degree of bladder outlet obstruction. 2. The colon is decompressed. There is only very minimal stool within the colon. 3. There is an area of consolidation very minimal effusion at the right lung base. Chest X-Ray 03/22/18 14:53 CONCLUSION: Elevation of the right hemidiaphragm with atelectatic changes at the right lung base similar to previous exam. Assessment and Plan - Plan Acute renal failure S/t bladder outlet obstruction. CT shows: The bladder is distended; There is mild prominence of the collecting system within both kidneys; The prostate is mildly enlarged; The exam would suggest some degree of bladder outlet obstruction. Urology consult appreciated. Creatinine improving. -continue Flomax. Add finasteride. -continue Silver. Change to leg bag. Case management setting up [facility]. -outpt follow-up with urology. -follow Is and Os. -follow BMP and avoid nephrotoxins. Hematuria Urology notified. CBC stable. -outpt follow-up with urology. Abdominal discomfort S/t above as well as constipation. Improved. -treatment as above. -bowel regimen. -pain control and antiemetics as needed. Right shoulder replacement The pt recently had right shoulder surgery. He has not been taking ASA as recommended by ortho s/t abdominal discomfort. -Heparin for prophylaxis. -PT eval. [facility] upon d/c. Leukocytosis Likely a stress reaction. -follow CBC. Resolved. Anxiety Acute on chronic. -clonazepam as needed. PPx: Heparin
== END 2018-03-23 13:24 | disposition home health service (06) ==
LOC: NEPE 10:31 → NEDA 13:53 → N04 19:58 → NEDA 20:02
PROVIDERS: ADMIT Hospitalist; ATTEND Hospitalist